=== PATIENT | female | born 1970 ===

== ENCOUNTER 2020-06-04 05:00 | Emergency (ER) | payer OTHER ==
[~2020-06-04] VITALS: Ht 152.4 cm; Wt 71.7 kg
[~2020-06-04 05:00] MED LIST: DUI500 PO; HYDROCHLOROTHIA25 MG; LOSARTAN-HCTZ1 EACH PO; NORVASC10 MG; PERCOCET 5-3251 EACH PO; PRINIVIL20 MG; XARELTO10 MG PO
[2020-06-04] MEDS ORDERED: GLIMEPIRIDE4 MG (05:15)
== END 2020-06-04 11:44 | disposition home or self-care (01) ==
LOC: ER 05:00
DX: R51.9 Headache, unspecified (principal); R11.0 Nausea

== ENCOUNTER 2020-10-13 04:17 | Inpatient (IN) | payer OTHER ==
[~2020-10-13] VITALS: Ht 152.4 cm; Wt 72.6 kg
[~2020-10-13 04:17] MED LIST changes: +GLIMEPIRIDE4 MG PO
[2020-10-15] MEDS ORDERED: PERCOCET 5-3251 EACH PO (15:10)
[2020-10-15] MEDS ORDERED: ELIQUIS2.5 MG PO (15:10)
[2020-10-15] MEDS ORDERED: CEFADROXIL500 MG PO (15:10)
[2020-10-16] MEDS ORDERED: ELIQUIS2.5 MG PO (08:00)
[2020-10-16] MEDS ORDERED: PERCOCET 5-3251 EACH PO (08:00)
[2020-10-16] MEDS ORDERED: DUI500 PO (08:00)
== END 2020-10-16 14:22 | DRG 470 ==
LOC: CIR.AMB 04:17 → O/R 10:00 → SURG 10:00 → CIR.AMB 10:15 → SURG 10:21 → CIR.AMB 16:00 → SURG 10-14 16:54
PROVIDERS: ADMIT Orthopaedic Surgery; ATTEND Orthopaedic Surgery
PROC: 0SRD0J9 Replacement of Left Knee Joint with Synthetic Substitute, Cemented, Open Approach (ICD-10-PCS; principal; 2020-10-13 16:00)
DX: M17.12 Unilateral primary osteoarthritis, left knee (principal); D62 Acute posthemorrhagic anemia; E66.8 Other obesity; E11.9 Type 2 diabetes mellitus without complications; I10 Essential (primary) hypertension; Z79.4 Long term (current) use of insulin